=== PATIENT | female | born 1960 | race Two or more races ===

== ENCOUNTER 2017-09-28 00:15 | Inpatient (IN) | payer MEDICARE, MEDICAID ==
--- NOTE | 2017-09-28 00:43 | ED Physician Chart ---
ED Chief Complaint/HPI - Patient Information Date Seen:: 09/28/17 Time Seen:: 00:18 Chief Complaint:: FEVER History of Present Illness:: THE PATIENT WAS SENT FROM THE ALF FOR AN EVALUATION OF HER COUGH AND FEVER THAT STARTED TWO DAYS AGO. SHE IS CHRONICALLY ILL WITH CEREBRAL PALSY, CACHEXIA AND DYSPHAGIA. Allergies:: Allergies Allergy/AdvReac Type Severity Reaction Status Date / Time No Known Allergies Allergy Verified 09/28/17 00:18 Vitals:: Vital Signs - 8 hr 09/28/17 00:18 Temp 97.6 F HR 94 RR 18 BP 129/86 O2 Sat % 95 Historian:: EMS, Medical Records Review:: Nurse's Note Reviewed, Transfer documents Reviewed ED Review of Systems - Review of Systems General/Constitutional: No fever, No chills, No weight loss, No weakness, No diaphoresis, No edema, No loss of appetite, Other (THIS PATIENT CANNOT GIVE A REVIEW OF SYSTEMS.) Skin: No skin lesions, No rash, No bruising Head: No headache, No light-headedness Eyes: No loss of vision, No pain, No diplopia ENT: No earache, No nasal drainage, No sore throat, No tinnitus Neck: No neck pain, No swelling, No thyromegaly, No stiffness, No mass noted Cardio Vascular: No chest pain, No palpitations, No PND, No orthopnea, No edema Pulmonary: No SOB, No cough, No sputum, No wheezing GI: No nausea, No vomiting, No diarrhea, No pain, No melena, No hematochezia, No constipation, No hematemesis G/U: No dysuria, No frequency, No hematuria Musculoskeletal: No bone or joint pain, No back pain, No muscle pain Endocrine: No polyuria, No polydipsia Psychiatric: No prior psych history, No depression, No anxiety, No suicidal ideation Hematopoietic: No bruising, No lymphadenopathy Allergic/Immuno: No urticaria, No angioedema Neurological: No syncope, No focal symptoms, No weakness, No paresthesia, No headache, No seizure, No dizziness, No confusion, No vertigo ED Past Medical History - Past Medical History Obtainable: Yes Past Medical History: CVA/TIA, Dementia Family History: None Social History: Non Smoker, No Alcohol, No Drug Use, Care Facility Surgical History: None Psychiatricy History: Dementia Medication: Reviewed Family Medical History - Family Member Mother History Unknown: Yes ED Labs/Radiology/EKG Results - Lab Results Results: Abnormal Lab Results 09/28/17 09/28/17 00:36 00:36 WBC 7.8 RBC 4.51 Hgb 12.8 Hct 38.9 L MCV 86.2 MCH 28.4 MCHC Differential 32.9 RDW 14.6 Plt Count 318 MPV 7.0 Neutrophils % 54.1 Lymphocytes % 30.7 Monocytes % 9.3 Eosinophils % 5.2 H Basophils % 0.7 Sodium 136 Potassium 4.3 Chloride 106 Carbon Dioxide 22.3 Anion Gap 12.0 BUN 12 Creatinine 0.6 Est GFR ( Amer) > 60.0 Est GFR (Non-Af Amer) > 60.0 BUN/Creatinine Ratio 20.0 Glucose 108 H Calcium 9.5 Total Bilirubin 0.3 AST 18 ALT 23 Alkaline Phosphatase 107 H Total Protein 7.2 Albumin 3.9 Globulin 3.3 Albumin/Globulin Ratio 1.2 - Radiology Results Results: chest x-ray = nad ED Assessment - Assessment General Assessment: acute bronchitis ED Septic Shock - . Is Septic Shock (SBP<90, OR Lactate>4 mmol\L) present?: No - <6hrs of presentation: Vital Signs: Vital Signs - 8 hr 09/28/17 00:18 Temp 97.6 F HR 94 RR 18 BP 129/86 O2 Sat % 95 ED Reassessment (Disposition) - Reassessment Reassessment Condition:: Unchanged - Patient Disposition Discharge/Transfer:: Acute Care w/in this hosp Admitting Medical Physician:: Lance Tracy Condition at Disposition:: Unchanged ED Discharge Plan - Patient Disposition Admit/Discharge/Transfer: Acute Care w/in this hosp Condition at Disposition: Improved
[2017-09-28] MEDS ORDERED: cefTRIAXone 1 GM in Sodium Chloride 0.9% 50 ML IV ONE (00:45)
[2017-09-28 00:52] LABS: % BASOPHILS 0.7 % (0.0-2.0); % EOSINOPHILS 5.2 % (0.0-5.0); % LYMPHOCYTES 30.7 % (20.0-50.0); % MONOCYTES 9.3 % (2.0-10.0); % NEUTROPHILS 54.1 % (40.0-80.0); BASOPHILE ABSOLUTE 0.1 Th/cumm (0-0.2); EOSINOPHILE ABSOLUTE 0.4 Th/cmm (0.1-0.4); HEMATOCRIT 38.9 % (41.0-60); HEMOGLOBIN 12.8 gm/dL (12-16); LYMPHOCYTE ABSOLUTE 2.4 Th/cmm (1.5-3.0); MEAN CELL VOLUME 86.2 fl (81-100); MEAN CORPUSCULAR HEMOGLOBIN 28.4 pg (27.0-31.0); MEAN CORPUSCULAR HGB CONC 32.9 pg (28.0-36.0); MONOCYTE ABSOLUTE 0.7 Th/cmm (0.3-1.0); NEUTROPHILE ABSOLUTE 4.2 Th/cmm (1.8-8.0); PLATELET COUNT 318 Th/cmm (150-400); RED BLOOD COUNT 4.51 Mil/cmm (3.80-5.10); RED CELL DISTRIBUTION WIDTH 14.6 % (11.5-20.0); WHITE BLOOD COUNT 7.8 Th/cmm (4.8-10.8)
[2017-09-28 01:08] LABS: ALB/GLOB RATIO 1.2 (1.0-1.8); ALBUMIN 3.9 gm/dL (3.7-5.3); ALKALINE PHOSPHATASE 107 U/L (34-104); BILIRUBIN,TOTAL 0.3 mg/dL (0.3-1.0); BUN - UREA NITROGEN 12 mg/dL (7-25); CALCIUM SERUM 9.5 mg/dL (8.6-10.3); CARBON DIOXIDE 22.3 mEq/L (21.0-31.0); CHLORIDE 106 mEq/L (98-107); CREATININE - SERUM 0.6 mg/dL (0.6-1.2); GFR AFRICAN-AMERICAN > 60.0 ml/min (>90); GFR NON AFRICAN-AMERICAN > 60.0 ml/min; GLUCOSE 108 mg/dL (70-105); POTASSIUM SERUM 4.3 mEq/L (3.5-5.1); SGOT 18 U/L (13-39); SGPT/ALT 23 U/L (7-52); SODIUM SERUM 136 mEq/L (136-145); TOTAL PROTEIN,SERUM 7.2 gm/dL (6.0-8.3)
[2017-09-28] MEDS ORDERED: Maalox 30 mL Cup PO PRN (02:03)
[2017-09-28] MEDS: Sodium Chloride 0.9% 1,000 ML IV SCH ×2 (03:20→20:31)
--- NOTE | 2017-09-28 08:26 | Diagnostic Imaging Report ---
Chest x-ray single view History: Congestion Comparison: None The heart size is normal. No focal pulmonary parenchymal processes. No hilar or mediastinal abnormalities. Impression: No acute abnormalities
[2017-09-28] MEDS: Aspirin 81mg Chewable Tab GT SCH (08:55)
[2017-09-28] MEDS ORDERED: Guaifenesin/Dextromethorphan 100mg-10mg/5mL Sugar Free 118mL Bottle PO PRN (10:57)
[2017-09-28] MEDS: Levofloxacin 500mg/100mL 500 MG/100 ML BAG IV SCH (11:29)
[2017-09-28 12:05] LABS: URINE MICROSCOPIC INDICATED? YES; URINE SOURCE CATH
[2017-09-28 12:08] LABS: URINE BILIRUBIN NEGATIVE (NEGATIVE); URINE BLOOD NEGATIVE (NEGATIVE); URINE GLUCOSE (UA) 100 mg/dL (NEGATIVE); URINE KETONE NEGATIVE (NEGATIVE); URINE LEUKOCYTE ESTERASE SMALL (NEGATIVE); URINE NITRATE POSITIVE (NEGATIVE); URINE PH 6.5 (4.6 - 8.0); URINE PROTEIN NEGATIVE (NEGATIVE); URINE UROBILINOGEN 0.2 E.U./dL (0.2 - 1.0)
[2017-09-28 12:12] LABS: URINE CLARITY HAZY (CLEAR); URINE COLOR YELLOW
[2017-09-28 12:13] LABS: URINE BACTERIA FEW /hpf (NONE SEEN); URINE EPITHELIAL CELLS FEW /lpf (FEW); URINE RBC 0-2 /hpf (0-5)
[2017-09-28] MEDS: Multivitamin 5 mL UDC GT SCH (12:15)
[2017-09-28] MEDS: Albuterol/Ipratropium Neb 3 ML AERS HHN PRN (12:22)
[2017-09-29 01:00] VITALS: BP 126/78
[2017-09-29 05:47] LABS: % BASOPHILS 1.5 % (0.0-2.0); % EOSINOPHILS 1.2 % (0.0-5.0); % LYMPHOCYTES 50.8 % (20.0-50.0); % MONOCYTES 9.4 % (2.0-10.0); % NEUTROPHILS 37.1 % (40.0-80.0); BASOPHILE ABSOLUTE 0.1 Th/cumm (0-0.2); EOSINOPHILE ABSOLUTE 0.1 Th/cmm (0.1-0.4); HEMOGLOBIN 11.1 gm/dL (12-16); LYMPHOCYTE ABSOLUTE 3.8 Th/cmm (1.5-3.0); MEAN CELL VOLUME 86.9 fl (81-100); MEAN CORPUSCULAR HEMOGLOBIN 28.7 pg (27.0-31.0); MEAN CORPUSCULAR HGB CONC 33.1 pg (28.0-36.0); MEAN PLATELET VOLUME 7.6 fl; MONOCYTE ABSOLUTE 0.7 Th/cmm (0.3-1.0); NEUTROPHILE ABSOLUTE 2.8 Th/cmm (1.8-8.0); PLATELET COUNT 266 Th/cmm (150-400); RED BLOOD COUNT 3.86 Mil/cmm (3.80-5.10); RED CELL DISTRIBUTION WIDTH 14.7 % (11.5-20.0); WHITE BLOOD COUNT 7.5 Th/cmm (4.8-10.8)
[2017-09-29 05:52] LABS: HEMATOCRIT 33.5 % (41.0-60)
[2017-09-29 05:57] LABS: ANION GAP 10.1 (7.0-16.0); BUN - UREA NITROGEN 18 mg/dL (7-25); CALCIUM SERUM 8.3 mg/dL (8.6-10.3); CARBON DIOXIDE 20.5 mEq/L (21.0-31.0); CHLORIDE 113 mEq/L (98-107); CREATININE - SERUM 0.5 mg/dL (0.6-1.2); GFR AFRICAN-AMERICAN > 60.0 ml/min (>90); GFR NON AFRICAN-AMERICAN > 60.0 ml/min; GLUCOSE 112 mg/dL (70-105); POTASSIUM SERUM 3.6 mEq/L (3.5-5.1); SODIUM SERUM 140 mEq/L (136-145)
[2017-09-29] MEDS: Albuterol/Ipratropium Neb 3 ML AERS HHN PRN (07:41)
[2017-09-29] MEDS ORDERED: Probiotic Screen MC PRN (09:00)
[2017-09-29] MEDS: Multivitamin 5 mL UDC GT SCH (09:08)
[2017-09-29] MEDS: Aspirin 81mg Chewable Tab GT SCH (09:14)
[2017-09-29] MEDS: Lactobacillus Rhamnosus GG 15 Billion CFU CAP.SPRINK NG SCH (09:15)
[2017-09-29] MEDS: Levofloxacin 500mg/100mL 500 MG/100 ML BAG IV SCH (10:08)
[2017-09-29] MEDS: Multivitamin Tab GT SCH (10:09)
--- NOTE | 2017-09-29 10:45 | History & Physical ---
ADMIT DATE: CHIEF COMPLAINT: The patient presented from ____ [facility] with the acute complaint of fever, cough with associated shortness of breath. The patient has past medical history of cerebral palsy, CVA, dementia, cachexia, and dysphagia. She has a past medical history of aspiration pneumonia due to the cerebral palsy and her dysphagia. At the [facility], they gave her cough medication as well as Tylenol and in the couple of days, it did not resolve the cough or her fevers. The patient was transferred to the hospital. PAST MEDICAL HISTORY: Cerebral palsy, CVA, dementia, muscle weakness, unsteady gait, and dysphagia. FAMILY HISTORY: Unremarkable. SOCIAL HISTORY: No drugs, alcohol, or tobacco. She lives at [facility]. REVIEW OF SYSTEMS: Cannot be obtained because the patient has cerebral palsy and she is unable to understand questioning. PHYSICAL EXAMINATION: VITAL SIGNS: Temperature 98 degrees Fahrenheit, pulse 80, respirations 12, and blood pressure is 105/61. HEENT: PERRLA and EOMI. Nasal cannula in place. NECK: Supple. Trachea midline. CARDIOVASCULAR: Regular rate and rhythm. RESPIRATORY: Decreased breath sounds with some rhonchi bilaterally. No wheezing, no rales. ABDOMEN: Soft, nontender, and nondistended. Bowel sounds are present in all 4 quadrants. EXTREMITIES: Positive muscle tone. Muscle strength testing could not be performed because the patient is unable to understand questioning during the physical exam. SKIN: No open wounds or rashes. NEUROLOGIC/PSYCH: Cranial nerves 2-12 are intact. LABORATORY DATA: Hemoglobin 12.8 and potassium 4.3. ASSESSMENT AND PLAN: Acute bronchitis, dysphagia, cerebral palsy, cerebrovascular accident, dementia, unsteady gait, and muscle weakness. The patient was admitted to Med/Surg ____ for the bronchitis. Continue IV fluids. GERD, continue Pepcid and DuoNebs for shortness of breath. ADLs poor due to cerebral palsy. [facility]# [id number]
[2017-09-30] MEDS: Sodium Chloride 0.9% 1,000 ML IV SCH ×2 (03:00→13:05)
--- NOTE | 2017-09-30 08:02 | General Progress Note ---
Subjective - Review of Systems Service Date: 09/30/17 Subjective: Pt seen and eval. Doing better today. On IV levaquin. Breathing better. No sob at rest today. No fevers or chills. Requires ADL support. Objective - Results Result Diagrams: 09/29/17 05:05 09/29/17 05:05 Recent Labs: Laboratory Last Values WBC 7.5 Th/cmm (4.8-10.8) 09/29/17 05:05 RBC 3.86 Mil/cmm (3.80-5.10) 09/29/17 05:05 Hgb 11.1 gm/dL (12-16) L 09/29/17 05:05 Hct 33.5 % (41.0-60) L D 09/29/17 05:05 MCV 86.9 fl (81-100) 09/29/17 05:05 MCH 28.7 pg (27.0-31.0) 09/29/17 05:05 MCHC Differential 33.1 pg (28.0-36.0) 09/29/17 05:05 RDW 14.7 % (11.5-20.0) 09/29/17 05:05 Plt Count 266 Th/cmm (150-400) 09/29/17 05:05 MPV 7.6 fl 09/29/17 05:05 Neutrophils % 37.1 % (40.0-80.0) L 09/29/17 05:05 Lymphocytes % 50.8 % (20.0-50.0) H 09/29/17 05:05 Monocytes % 9.4 % (2.0-10.0) 09/29/17 05:05 Eosinophils % 1.2 % (0.0-5.0) 09/29/17 05:05 Basophils % 1.5 % (0.0-2.0) 09/29/17 05:05 Sodium 140 mEq/L (136-145) 09/29/17 05:05 Potassium 3.6 mEq/L (3.5-5.1) 09/29/17 05:05 Chloride 113 mEq/L (98-107) H 09/29/17 05:05 Carbon Dioxide 20.5 mEq/L (21.0-31.0) L 09/29/17 05:05 Anion Gap 10.1 (7.0-16.0) 09/29/17 05:05 BUN 18 mg/dL (7-25) 09/29/17 05:05 Creatinine 0.5 mg/dL (0.6-1.2) L 09/29/17 05:05 Est GFR ( Amer) > 60.0 ml/min (>90) 09/29/17 05:05 Est GFR (Non-Af Amer) > 60.0 ml/min 09/29/17 05:05 BUN/Creatinine Ratio 36.0 09/29/17 05:05 Glucose 112 mg/dL (70-105) H 09/29/17 05:05 Calcium 8.3 mg/dL (8.6-10.3) L 09/29/17 05:05 Total Bilirubin 0.3 mg/dL (0.3-1.0) 09/28/17 00:36 AST 18 U/L (13-39) 09/28/17 00:36 ALT 23 U/L (7-52) 09/28/17 00:36 Alkaline Phosphatase 107 U/L (34-104) H 09/28/17 00:36 Troponin I 0.01 ng/mL (0.01-0.05) 09/28/17 00:36 Total Protein 7.2 gm/dL (6.0-8.3) 09/28/17 00:36 Albumin 3.9 gm/dL (3.7-5.3) 09/28/17 00:36 Globulin 3.3 gm/dL 09/28/17 00:36 Albumin/Globulin Ratio 1.2 (1.0-1.8) 09/28/17 00:36 Urine Source CATH 09/28/17 12:00 Urine Color YELLOW 09/28/17 12:00 Urine Clarity HAZY (CLEAR) 09/28/17 12:00 Urine pH 6.5 (4.6 - 8.0) 09/28/17 12:00 Ur Specific Mcneal 1.015 (1.005-1.030) 09/28/17 12:00 Urine Protein NEGATIVE mg/dL (NEGATIVE) 09/28/17 12:00 Urine Glucose (UA) 100 mg/dL (NEGATIVE) H 09/28/17 12:00 Urine Ketones NEGATIVE mg/dL (NEGATIVE) 09/28/17 12:00 Urine Blood NEGATIVE (NEGATIVE) 09/28/17 12:00 Urine Nitrate POSITIVE (NEGATIVE) H 09/28/17 12:00 Urine Bilirubin NEGATIVE (NEGATIVE) 09/28/17 12:00 Urine Urobilinogen 0.2 E.U./dL (0.2 - 1.0) 09/28/17 12:00 Ur Leukocyte Esterase SMALL (NEGATIVE) H 09/28/17 12:00 Urine RBC 0-2 /hpf (0-5) 09/28/17 12:00 Urine WBC 6-10 /hpf (0-5) H 09/28/17 12:00 Ur Epithelial Cells FEW /lpf (FEW) 09/28/17 12:00 Urine Bacteria FEW /hpf (NONE SEEN) 09/28/17 12:00 - Physical Exam Vitals and I&O: Vital Signs Temp 98.4 F 09/30/17 04:00 Pulse 94 09/30/17 04:00 Resp 19 09/30/17 04:00 BP 125/78 09/30/17 04:00 Pulse Ox 97 09/30/17 04:00 Intake & Output 09/29/17 09/30/17 09/30/17 18:59 06:59 18:59 Intake Total 1820 200 Output Total 4 Balance 1816 200 Weight (lbs) 45.858 kg 43.998 kg Intake: Intake, IV Amount 1100 Levofloxacin 500mg/100mL 100 500 mg In 100 ml @ 100 mls/hr IV Q24HR [facility] Rx#: [id number] Sodium Chloride 0.9% 1, 1000 000 ml @ 60 mls/hr IV . [id number] CJ Rx#:[id number] Oral 720 Tube Feeding 200 Output: Urine 4 Other: # Voids 3 # Bowel Movements 1 Stool Characteristics Soft Brown Active Medications: Current Medications Acetaminophen (Tylenol) 650 mg PO Q6H PRN PRN Reason: Mild Pain/Headache/T above 101 Stop: 11/27/17 02:02 Last Admin: 09/29/17 22:15 Dose: 650 mg Al Hydrox/Mg Hydrox/Simethicone (Maalox) 30 ml PO Q6H PRN PRN Reason: Dyspepsia Stop: 11/27/17 02:02 Albuterol/Ipratropium (Duoneb Neb) 3 ml HHN Q4HRT PRN PRN Reason: Wheezing Stop: 11/27/17 10:39 Last Admin: 09/29/17 07:41 Dose: 3 ml Aspirin (Aspirin Chewable) 81 mg GT DAILY [facility] Stop: 11/27/17 08:59 Last Admin: 09/29/17 09:14 Dose: 81 mg Bisacodyl (Dulcolax 10 Mg Supp) 10 mg RC Q72HR PRN PRN Reason: Constipation Stop: 11/27/17 02:09 Famotidine (Pepcid) 20 mg GT DAILY [facility] Stop: 11/27/17 08:59 Last Admin: 09/29/17 09:14 Dose: 20 mg Guaifenesin/Dextromethorphan (Diabetic Tussin Dm Sugar Free) 10 ml PO Q6H PRN PRN Reason: Cough Stop: 11/27/17 10:56 Last Admin: 09/29/17 10:09 Dose: 10 ml Heparin Sodium (Porcine) (Heparin) 5,000 units SUBQ Q12HR [facility] Stop: 11/27/17 08:59 Last Admin: 09/29/17 22:16 Dose: 5,000 units Sodium Chloride (Nacl 0.9%) 1,000 mls @ 60 mls/hr IV .[id number] [facility]J Stop: 11/27/17 02:14 Last Admin: 09/30/17 03:00 Dose: 60 mls/hr Levofloxacin (Levaquin Pb) 500 mg in 100 mls @ 100 mls/hr IV Q24HR [facility] Stop: 11/27/17 10:44 Last Infusion: 09/29/17 11:15 Dose: Infused Lactobacillus Rhamnosus (Culturelle 15b) 1 each NG DAILY [facility] Stop: 11/28/17 08:59 Last Admin: 09/29/17 09:15 Dose: 1 each Miscellaneous (Probiotic Screen) 1 ea MC PRN PRN PRN Reason: PROTOCOL Stop: 11/28/17 08:59 Multivitamins/Vitamin C (Theragran) 1 tab GT DAILY [facility] Stop: 11/28/17 09:29 Last Admin: 09/29/17 10:09 Dose: 1 tab Ondansetron HCl (Zofran) 4 mg IVP Q6H PRN PRN Reason: Nausea / Vomiting Stop: 11/27/17 02:02 Senna (Senna) 8.6 mg GT HS [facility] Stop: 11/27/17 20:59 Last Admin: 09/29/17 22:15 Dose: 8.6 mg General: Cooperative, Mild distress HEENT: Atraumatic, PERRLA Neck: Supple, JVD Cardiovascular: Regular rate, Normal S1, Normal S2 Lungs: Other (Has congestion) Abdomen: Soft Assessment/Plan - Assessment Assessment: Acute bronchitis UTI Cerebral Palsy Unsteady gait Muscle weakness Gerd - Plan Plan: Continue levaquin and breathing tx. PT eval today. cxr reviewed. Labs reviewed.
[2017-09-30] MEDS: Multivitamin Tab GT SCH (08:59)
[2017-09-30] MEDS: Aspirin 81mg Chewable Tab GT SCH (08:59)
[2017-09-30] MEDS: Lactobacillus Rhamnosus GG 15 Billion CFU CAP.SPRINK NG SCH (08:59)
--- NOTE | 2017-09-30 09:43 | Progress Notes ---
DATE: 09/29/2017 SUBJECTIVE: The patient is resting comfortably in bed, does not appear to be in acute pain or distress at this time. Denies fevers and chills. The patient is tolerating feedings without complication. OBJECTIVE: VITAL SIGNS: Temperature 98.2 degrees, pulse 79, blood pressure 120/65 and respiratory rate 18, O2 saturation is 100%. GENERAL: NAD. HEENT: PERRLA, EOMI. Nasal cannula in place. NECK: Supple. Trachea midline. CARDIOVASCULAR: Regular rate and rhythm. RESPIRATORY: Decreased breath sounds bilaterally without wheezes, rales or rhonchi. ABDOMEN: Soft, nontender, nondistended. Bowel sounds positive in all 4 quadrants. SKIN: Warm and dry. MUSCULOSKELETAL: Muscle strength testing in bilateral upper and lower extremities 4/5. LABORATORY DATA: Positive for urinary tract infection. Hemoglobin 11.1. ASSESSMENT AND PLAN: Metabolic encephalopathy secondary to Alzheimer dementia exacerbation, urinary tract infection, acute bronchitis, dysphagia, cerebral palsy, history of a CVA, unsteady gait, muscle weakness. Continue IV antibiotics, continue pureed diet as tolerated. Pepcid for gastrointestinal prophylaxis. DuoNebs for shortness of breath. A repeat chest x-ray was performed that showed no acute abnormality. Continue medical care. [facility]# [id number]
[2017-09-30] MEDS: Levofloxacin 500mg/100mL 500 MG/100 ML BAG IV SCH (10:56)
--- NOTE | 2017-09-30 17:53 | Cardiology ---
09/29/[address] Landry. M-MODE ECHOCARDIOGRAM: Mitral valve, anterior leaflet of mitral valve shows normal excursion, EF velocity. Posterior leaflet of the mitral valve shows normal excursion. Left ventricular posterior wall shows increased thickness, normal excursion. Interventricular septum shows increased thickness, normal excursion. Hypertrophy of the left ventricle, ejection fraction 63%. Left atrium normal. Aortic root shows normal dimension, normal excursion of aortic leaflets. CONCLUSION: Hypertrophy of the left ventricle, ejection fraction 63%. A 2D echo on the same patient, long axis view showed normal-sized left ventricle with hypertrophy of the left ventricle. Left atrium normal. Aortic root shows normal dimension, normal excursion of aortic leaflets. Short axis view of mitral valve normal. Short axis view of aortic valve normal. Apical 4-chamber view showed normal-sized left ventricle with hypertrophy of the left ventricle. Left atrium normal, right ventricular cavity and right atrium normal, no pericardial effusion. Hypertrophy of the left ventricle, ejection fraction 63%. Doppler study shows trace mitral regurgitation, tricuspid regurgitation, pulmonary regurgitation, and ejection fraction 63%. JOB# [id number]
--- NOTE | 2017-10-01 07:07 | Discharge Summary ---
DATE OF DISCHARGE: 10/01/2017 CAUSE OF ADMISSION: The patient is a pleasant 57-year-old female who is a longstanding patient of mine at [facility]. She has history of cerebral palsy, cerebrovascular accident and dementia as well. She was complaining of fevers, coughing, and significant shortness of breath. She was also experiencing decreased appetite and overall decline. She was transferred for further workup and treatment. ADMITTING DIAGNOSES: 1. Acute bronchitis. 2. Dysphagia. 3. Cerebral palsy. 4. Cerebrovascular accident. 5. Unsteady gait. 6. Muscle weakness. 7. Gastroesophageal reflux disease. DISCHARGE DIAGNOSES: 1. Acute bronchitis. 2. Urinary tract infection. 3. Cerebral palsy. 4. Unsteady gait. 5. Muscle weakness. 6. Gastroesophageal reflux disease. PLAN: The patient was given breathing treatment and Levaquin. She is eating more now, but with assistance. She is in a pureed diet. PT evaluation was ordered. Chest x-ray reviewed, rales are reviewed. She is stable to be discharged back to the half-way facility. PHYSICAL EXAMINATION: VITAL SIGNS: Temperature 97.4 degrees, heart rate is 75, respirations 20, blood pressure 112/70, currently no pain. GENERAL: No acute distress. NEUROLOGIC: She is alert to name. She knows she is in the hospital. HEENT: No acute issues. NECK: Trachea is midline. CARDIOVASCULAR: Regular rate and rhythm. ABDOMEN: Nontender and nondistended. SKIN: No rashes. RESPIRATORY: Decreased breath sounds bilaterally, but the rales have resolved. LABORATORY DATA: White count is 7.5, hemoglobin 11.1, and platelet count 266,000. Sodium 140, potassium 3.6, BUN is 18, creatinine 0.5, CO2 is 20.5, and calcium is 8.3. The patient's UA was positive for urinary tract infection, methicillin-resistant Staphylococcus aureus of the nares is negative. Also, Gram stain of the sputum shows squamous epithelial cells greater than 10. Chest x-ray did not show any acute abnormalities. Echo was done, which showed ejection fraction of 63%. DISPOSITION: She is being discharged back to half-way facility. MEDICATIONS: All medication reviewed and reconciled. PROGNOSIS: Fair. ACTIVITY: As tolerated. CONSULTS: None with the exception of Dr. Jovanny Guo reading the echo report. [facility]# [id number]
[2017-10-01] MEDS: Lactobacillus Rhamnosus GG 15 Billion CFU CAP.SPRINK NG SCH (09:52)
[2017-10-01] MEDS: Multivitamin Tab GT SCH (09:52)
[2017-10-01] MEDS: Aspirin 81mg Chewable Tab GT SCH (09:52)
[2017-10-01] MEDS: Sodium Chloride 0.9% 1,000 ML IV SCH (10:04)
[2017-10-01] MEDS: Levofloxacin 500mg/100mL 500 MG/100 ML BAG IV SCH (10:25)
== END 2017-10-01 15:28 | disposition home or self-care (01) | DRG 689 ==
LOC: ER 00:15 → MSI 01:20
PROVIDERS: ADMIT Family Medicine; ATTEND Family Medicine
DX: N39.0 Urinary tract infection, site not specified (principal); G93.41 Metabolic encephalopathy; R64 Cachexia; R13.10 Dysphagia, unspecified; J20.9 Acute bronchitis, unspecified; G30.9 Alzheimer's disease, unspecified; G80.9 Cerebral palsy, unspecified; R26.81 Unsteadiness on feet; M62.81 Muscle weakness (generalized); K21.9 Gastro-esophageal reflux disease without esophagitis; F02.80 Dementia in other diseases classified elsewhere, unspecified severity, without behavioral disturbance, psychotic disturbance, mood disturbance, and anxiety; Z86.73 Personal history of transient ischemic attack (TIA), and cerebral infarction without residual deficits; Z68.23 Body mass index [BMI] 23.0-23.9, adult
CPT/HCPCS: 36415-UA; 71045-TC; 80048-TC; 80053-TC; 81001-TC; 84484-TC; 85025-TC; 87070; 87086-90; 93005; 94640; 94760; 96375; J0696; J1644; J1956; J2930; J7030; Z7610